=== PATIENT | male | born 1945 | race Caucasian/White ===

== ENCOUNTER → 2016-07-18 | Outpatient (CLI) | payer BC ==
[~2016-07-18] MED LIST: BP MED; CMDUNK; COUMADIN
[2016-07-18 12:44] LABS: CHOLESTEROL/HDL RATIO 4.2
== END | disposition home or self-care (01) ==
LOC: C.LAB1850 10:26
PROVIDERS: ATTEND Internal Medicine Cardiovascular Disease
DX: I10 Essential (primary) hypertension (principal); I50.9 Heart failure, unspecified; E78.00 Pure hypercholesterolemia, unspecified